=== PATIENT | male | born 1995 | race Caucasian/White ===

== ENCOUNTER 2022-06-14 19:45 | Emergency (ER) | payer MEDICAID ==
[~2022-06-14] VITALS: Ht 195.6 cm; Wt 75.0 kg
[2022-06-14 19:55] VITALS: BP 135/87; PULSE 86; TEMP 97.6
[2022-06-14] MEDS ORDERED: SEROQUEL 1100 MG/TAB PO (20:43)
== END 2022-06-14 20:56 | disposition home or self-care (01) ==
LOC: COL.ER 19:45
DX: Z76.0 Encounter for issue of repeat prescription (principal); F32.A Depression, unspecified; F17.220 Nicotine dependence, chewing tobacco, uncomplicated; Z28.310 Unvaccinated for COVID-19